=== PATIENT | male | born 1985 | race Hispanic/Latino ===

== ENCOUNTER 2017-05-25 18:09 | Emergency (ER) | payer SELFPAY ==
[2017-05-25 18:30] VITALS: BMI 23.7
[2017-05-25 18:31] VITALS: RESP 18; TEMP 98.3
[2017-05-25] MEDS ORDERED: Sodium Chloride 0.9% 1,000 ML IV STA (18:45)
[2017-05-25 19:50] LABS: URINE BILIRUBIN NEGATIVE (NEGATIVE); URINE BLOOD MODERATE (NEGATIVE); URINE GLUCOSE (UA) NEGATIVE (NEGATIVE); URINE KETONE NEGATIVE (NEGATIVE); URINE LEUKOCYTE ESTERASE NEGATIVE Leu/uL (NEGATIVE); URINE PROTEIN 30 mg/dL (<30 mg/dL); URINE UROBILINOGEN 0.2 E.U./dL (<1 E.U./dL)
[2017-05-25 19:50] LABS: BASO # 0.02 K/mm3 (0.0-2.0); BASO % 0.4 % (0.0-3.0); EOS # 0.1 (0.0-0.7); EOS % 1.5 % (1.5-5.0); GRAN # 3.5 (1.4-6.5); GRAN % 66.5 % (50.0-68.0); LYMPH # 1.1 (1.2-3.4); LYMPH % 21.1 % (22.0-35.0); MEAN CELL VOLUME 88.6 fl (80.0-105.0); MEAN CORPUSCULAR HEMOGLOBIN 31.3 pg (25.0-35.0); MEAN CORPUSCULAR HGB CONC 35.4 g/dl (31.0-37.0); MEAN PLATELET VOLUME 11.1 fl (7.0-11.0); MONO # 0.6 (0.1-0.6); MONO % 10.5 % (1.0-6.0); WHITE BLOOD COUNT 5.3 10^3/ul (4.5-11.0)
[2017-05-25 19:53] LABS: URINE APPEARANCE SL CLOUDY (CLEAR); URINE COLOR YELLOW (YELLOW)
[2017-05-25 19:55] LABS: URINE WBC NEGATIVE /hpf (0-6)
[2017-05-25 20:00] LABS: ALB/GLOB RATIO 1.3 (1.1-1.8); ALKALINE PHOSPHATASE 53 U/L (38-126); ALT/SGPT 27 U/L (7-56); AST/SGOT 26 U/L (17-59); BILIRUBIN,TOTAL 0.9 mg/dL (0.2-1.3); BLOOD UREA NITROGEN 16 mg/dL (7-21); CALCIUM 9.5 mg/dL (8.4-10.5); CARBON DIOXIDE 30 mmol/L (21-33); CHLORIDE 101 mmol/L (98-107); GFR AFRICAN-AMERICAN > 60; GLUCOSE,RANDOM 92 mg/dL (70-110); POTASSIUM 3.7 mmol/L (3.6-5.0); SODIUM 141 mmol/L (132-148)
--- NOTE | 2017-05-25 20:01 | ED PDOC ---
Arrival/HPI - General Chief Complaint: Male Genitourinary Time Seen by Provider: 05/25/17 18:43 Historian: Patient - History of Present Illness Narrative History of Present Illness (Text): 05/25/17 20:07 32yr old male presents today with left sided testicular pain radiating into the left lower quadrant of the abdomen. pt states pain started at 9am. pt describes pain as achy, rates pain as 7/10. pt denies fever/chills. denies penile discharge. no n/v/d/c. no dizziness or weakness. no vomiting/diarrhea. no bladder or bowel incontinence. no cp or sob. no medications taken for pain at home. no other complaints . Symptom Onset: Sudden Symptom Course: Unchanged Quality: Aching Severity Level: 7 Past Medical History - Provider Review Nursing Documentation Reviewed: Yes - Travel History Have you recently traveled outside [place] w/in the past 3 mons?: No - Infectious Disease Hx of Infectious Diseases: None - Tetanus Immunization Tetanus Immunization: Unknown - Neurological Other/Comment: Lyme Disease - Psychiatric Hx Substance Use: No - Anesthesia Hx Anesthesia: No Family/Social History - Physician Review Nursing Documentation Reviewed: Yes Family/Social History: Unknown Family HX Smoking Status: Never Smoked Hx Alcohol Use: Yes Frequency of alcohol use: Socially Hx Substance Use: No Allergies/Home Meds Allergies/Adverse Reactions: Allergies No Known Allergies Allergy (Verified 10/28/16 09:03) Home Medications: Home Meds Medication Instructions Recorded Confirmed No Known Home Med 05/25/17 05/25/17 Review of Systems - Review of Systems Constitutional: absent: Fatigue, Fevers Respiratory: absent: SOB, Cough Cardiovascular: absent: Chest Pain, Palpitations Gastrointestinal: Abdominal Pain. absent: Nausea, Vomiting Genitourinary Male: Other (left testicular pain). absent: Dysuria, Frequency, Hematuria, Urinary Output Changes Musculoskeletal: absent: Arthralgias, Back Pain, Neck Pain Skin: absent: Rash, Pruritis Neurological: absent: Headache, Dizziness Psychiatric: absent: Anxiety, Depression, Suicidal Ideation Physical Exam Vital Signs Reviewed: Yes Vital Signs Temp Pulse Resp BP Pulse Ox 05/25/17 22:30 61 18 129/81 99 05/25/17 18:30 98.3 F 72 18 132/85 98 Temperature: Afebrile Blood Pressure: Normal Pulse: Regular Respiratory Rate: Normal Appearance: Positive for: Well-Appearing, Non-Toxic, Comfortable Pain Distress: None Mental Status: Positive for: Alert and Oriented X 3 - Systems Exam Head: Present: Atraumatic Mouth: Present: Moist Mucous Membranes Neck: Present: Normal Range of Motion Respiratory/Chest: Present: Clear to Auscultation, Good Air Exchange. No: Respiratory Distress, Accessory Muscle Use Cardiovascular: Present: Regular Rate and Rhythm, Normal S1, S2. No: Murmurs Abdomen: Present: Tenderness (minimal llq tenderness), Normal Bowel Sounds. No : Distention, Peritoneal Signs, Rebound, Guarding Back: Present: Normal Inspection. No: CVA Tenderness, Midline Tenderness, Paraspinal Tenderness Medical Decision Making ED Course and Treatment: 32 yr old male with left sided testicular pain since 9am this morning. vitals stable. no distress. cbc: wnl cmp; wnl UA: + blood gc/chalymdia pending NS iv bolus toradol. pt reassessment; pt feeling better after toradol . testicular US: FINDINGS: Right testicle: No mass. No torsion. Left testicle: No mass. No torsion. Epididymides: RIGHT epididymal head measures 1.4 x 0.9 x 1.6 cm, heterogeneous. LEFT epididymal head measures 1.3 x 0.8 x 1.3 cm, heterogeneous. Scrotum: RIGHT varicocele. LEFT varicocele. Small RIGHT hydrocele. IMPRESSION: 1. No sonographic evidence of testicular torsion. 2. Bilateral varicoceles. 3. Heterogeneous epididymis, nonspecific. Clinical correlation is needed ct abd/pelvis PENDING 05/25/17 22:36 pt states he can not wait for CT results to come back. he wants to sign out AMA. Patient has been advised to not leave the emergency room but has decided to go AGAINST MEDICAL ADVICE. The patient possesses capacity to make decisions and has voiced understanding to all my warnings of potential worsening of the condition for which medical care was sought. I have discussed all known and potential risks and consequences to the patient leaving AGAINST MEDICAL ADVICE. Patient is leaving against medical advise. AMA form signed. witness by JAYMIE Maldonado pt aware of risk of , disability, worsening of symptoms, including kidney failure. Impression: abdominal pain, testicular pain, varicocele AMA; return if you wish to continue your care follow up with the urologist Follow up with the primary care physician return immediately if symptoms worsen,persist or if new symptoms develop. 05/25/17 22:28 - Lab Interpretations Lab Results: 05/25/17 19:15 05/25/17 19:15 Lab Results 05/25/17 19:15: WBC 5.3, RBC 4.63, Hgb 14.5, Hct 41.0 L, MCV 88.6, MCH 31.3, MCHC 35.4, RDW 12.0, Plt Count 214, MPV 11.1 H, Gran % 66.5, Lymph % (Auto) 21.1 L, Dickens % (Auto) 10.5 H, Eos % (Auto) 1.5, Baso % (Auto) 0.4, Gran # 3.50, Lymph # 1.1 L, Dickens # 0.6, Eos # 0.1, Baso # 0.02 05/25/17 19:15: Sodium 141, Potassium 3.7, Chloride 101, Carbon Dioxide 30, Anion Gap 14, BUN 16, Creatinine 0.9, Est GFR ( Amer) > 60, Est GFR (Non- Af Amer) > 60, Random Glucose 92, Calcium 9.5, Total Bilirubin 0.9, AST 26, ALT 27, Alkaline Phosphatase 53, Total Protein 8.0, Albumin 4.5, Globulin 3.5, Albumin/Globulin Ratio 1.3 05/25/17 19:00: Urine Color Yellow, Urine Appearance Sl cloudy, Urine pH 6.0, Ur Specific [place] 1.025, Urine Protein 30 H, Urine Glucose (UA) Negative, Urine Ketones Negative, Urine Blood Moderate H, Urine Nitrate Negative, Urine Bilirubin Negative, Urine Urobilinogen 0.2, Ur Leukocyte Esterase Negative, Urine RBC 5 - 10, Urine WBC Negative - RAD Interpretation Radiology Orders: 05/25/17 18:43 TESTES DUPLEX COMPLETE [US] Stat 05/25/17 21:03 ABD & PELVIS W/O PO OR IV CONT [CT] Stat - Medication Orders Current Medication Orders: Discontinued Medications Sodium Chloride (Sodium Chloride 0.9%) 1,000 mls @ 999 mls/hr IV .Q1H1M STA Stop: 05/25/17 19:45 Last Admin: 05/25/17 19:30 Dose: 999 mls/hr eMAR Start Stop Document 05/25/17 19:30 RD (Rec: 05/25/17 19:32 RD [id number]) Intravenous Solution Start Date 05/25/17 Start Time 19:30 End Date 05/25/17 End time 20:30 Total Infusion Time 60 Ketorolac Tromethamine (Toradol) 30 mg IVP STAT STA Stop: 05/25/17 18:46 Last Admin: 05/25/17 19:30 Dose: 30 mg MAR Pain Assessment Document 05/25/17 19:30 RD (Rec: 05/25/17 19:33 RD [id number]) Pain Reassessment Is this a pain reassessment? No Sleep Is patient sleeping during reassessment? No Presence of Pain Presence of Pain Yes IVP Administration Document 05/25/17 19:30 RD (Rec: 05/25/17 19:33 RD [id number]) Charges for Administration # of IVP Administrations 1 Disposition/Present on Arrival - Present on Arrival Any Indicators Present on Arrival: No History of DVT/PE: No History of Uncontrolled Diabetes: No Urinary Catheter: No History of Decub. Ulcer: No History Surgical Site Infection Following: None - Disposition Have Diagnosis and Disposition been Completed?: Yes Diagnosis: Abdominal pain, Testicle pain, Varicocele Disposition: AGAINST MEDICAL ADVICE Disposition Time: 22:31 Patient Plan: Other (AMA) Condition: UNKNOWN Additional Instructions: return if you wish to continue your care follow up with the urologist Follow up with the primary care physician return immediately if symptoms worsen,persist or if new symptoms develop. Referrals: Pasquale Vinson MD [Staff Provider] - Follow up with primary [facility] [place] [Outside] - Follow up with primary Checo Salgado MD [Staff Provider] - Follow up with primary Forms: [employer] (Ukrainian)
--- NOTE | 2017-05-25 21:03 | US ---
EXAM: US Scrotum CLINICAL HISTORY: 32 years old, male; Pain; Scrotum pain; Additional info: Left sided testicular pain TECHNIQUE: Real-time ultrasound of the scrotum with color Doppler and image documentation. COMPARISON: No relevant prior studies available. FINDINGS: Right testicle: No mass. No torsion. Left testicle: No mass. No torsion. Epididymides: RIGHT epididymal head measures 1.4 x 0.9 x 1.6 cm, heterogeneous. LEFT epididymal head measures 1.3 x 0.8 x 1.3 cm, heterogeneous. Scrotum: RIGHT varicocele. LEFT varicocele. Small RIGHT hydrocele. IMPRESSION: 1. No sonographic evidence of testicular torsion. 2. Bilateral varicoceles. 3. Heterogeneous epididymis, nonspecific. Clinical correlation is needed.
[2017-05-25 22:31] VITALS: BP 129/81; PULSE 61; O2SAT 99
--- NOTE | 2017-05-25 22:53 | CT ---
EXAM: CT Abdomen and Pelvis Without Intravenous Contrast CLINICAL HISTORY: 32 years old, male; Pain; Abdominal pain; Localized; Left; Additional info: Left sided abdominal pain TECHNIQUE: Axial computed tomography images of the abdomen and pelvis without intravenous contrast. All CT scans at this facility use one or more dose reduction techniques, viz.: automated exposure control; ma/kV adjustment per patient size (including targeted exams where dose is matched to indication; i.e. head); or iterative reconstruction technique. Coronal and sagittal reformatted images were created and reviewed. COMPARISON: No relevant prior studies available. FINDINGS: Lower thorax: Minimal atelectasis. ABDOMEN: Liver: Unremarkable. Gallbladder and bile ducts: No calcified stones. No ductal dilation. Pancreas: Unremarkable. No ductal dilation. Spleen: Mild splenomegaly. Adrenals: No mass. Kidneys and ureters: No renal calculi. No hydronephrosis. Stomach and bowel: Mild rectal wall thickening vs underdistention. No obstruction. Appendix: No findings to suggest acute appendicitis. PELVIS: Bladder: Unremarkable. No stones. Reproductive: Unremarkable as visualized. ABDOMEN and PELVIS: Intraperitoneal space: No significant fluid collection. No free air. Bones/joints: No acute fracture. Soft tissues: Unremarkable. Vasculature: Unremarkable. No aneurysm. Lymph nodes: No pathologically enlarged lymph nodes. IMPRESSION: 1. No CT evidence of urolithiasis. 2. Mild splenomegaly. 3. Mild rectal wall thickening vs underdistention. Clinical correlation is needed. 4. Incidental/non-acute findings are described above.
== END 2017-05-25 22:41 | disposition left against medical advice (07) ==
LOC: ED 18:09
DX: N50.812 Left testicular pain (principal); I86.1 Scrotal varices; R10.9 Unspecified abdominal pain
CPT/HCPCS: 74176; 80053; 81001; 85025; 87086; 87491; 87591; 93975; 96361; 96374; 99285; J1885; J7040